=== PATIENT | male | born 1990 | race Caucasian/White ===

== ENCOUNTER 2022-05-10 20:29 | Emergency (ER) | payer OTHER, SELFPAY ==
[2022-05-10] MEDS ORDERED: Lidocaine 1% (PF) 30 ML VIAL ONE (21:07)
[2022-05-10] MEDS ORDERED: Cephalexin 250 MG CAP ONE (22:21)
== END 2022-05-10 22:45 | disposition home or self-care (01) ==
LOC: BURERS 20:29
DX: S62.522A Displaced fracture of distal phalanx of left thumb, initial encounter for closed fracture (principal); I10 Essential (primary) hypertension; E10.9 Type 1 diabetes mellitus without complications; Z79.4 Long term (current) use of insulin; Z79.899 Other long term (current) drug therapy; W23.0XXA Caught, crushed, jammed, or pinched between moving objects, initial encounter
CPT/HCPCS: 12001; J2001